=== PATIENT | female | born 1970 | race Caucasian/White ===

== ENCOUNTER 2017-01-12 11:58 | Inpatient (IN) | payer SELFPAY ==
[2017-01-12] MEDS ORDERED: ACETAMINOPHEN 325 MG TAB PO ONE (12:17)
[2017-01-12] MEDS ORDERED: predniSONE 20 MG TAB PO ONE (12:17)
[2017-01-12] MEDS ORDERED: SODIUM CHLORIDE 0.9% 250ML 250 ML ONE (13:05)
--- NOTE | 2017-01-12 13:08 | ED.PDOC ---
History of Present Illness - General Chief Complaint: General Stated Complaint: Low blood count Time Seen by Provider: 01/12/17 12:06 Source: patient, family Exam Limitations: no limitations - History of Present Illness Initial Comments: the patient is a 46-year-old female with a history of diabetes insipidusfrom a intracranial hemorrhage due to a ruptured intracranial aneurysm approximately a year ago. She did have blood transfusion as at that time. The patient is presenting due to progressive dizziness and weakness over the last month. She has also had significant dyspnea on exertion. No chest pain or palpitations. No syncope but questionable near syncope. She does have some memory problems from a stroke that she sustained around the time of her intracranial hemorrhage. This has not changed. She has had generalized weakness. Easy fatigue. She apparently has had some iron deficiency for at least a year if she has been on oral iron tablet that long. She is unsure why she has iron deficiency. She has apparently never had an EGD or colonoscopy and no history of any GI bleeds. She reports some menstrual irregularities over the last 2-3 months. But not extremely heavy flow. She has had a mild headache off and on particularly when she stands up. She went to her primary care clinic today and was found to look very pale. Outpatient labs were ordered showing a hemoglobin and hematocrit of 3 and 11. Timing/Duration: unsure Severity: moderate Improving Factors: immobilization Worsening Factors: movement Associated Symptoms: headaches, loss of appetite, malaise, shortness of breath, weakness Allergies/Adverse Reactions: Allergies Amoxicillin Allergy (Verified 01/12/17 13:00) Anaphylaxis Codeine Allergy (Verified 01/12/17 13:00) Vomitting Diphenhydramine [From Benadryl] Allergy (Verified 01/12/17 13:00) Rash Ethanol [From Robitussin] Allergy (Verified 06/13/15 13:49) Guaifenesin [From Robitussin] Allergy (Verified 06/13/15 13:49) Home Medications: Ambulatory Orders Ciprofloxacin [Cipro] 500 mg PO BID #20 tab 06/13/15 Gabapentin [Neurontin] 100 mg PO BEDTIME 06/13/15 LORazepam [Ativan] 1 mg PO Q4H PRN 06/13/15 Lisinopril [Prinivil] 10 mg PO DAILY 06/13/15 Metoprolol Succinate [Metoprolol Succinate ER] 25 mg PO BID 06/13/15 Multiple Vitamins W/ Minerals [Centrum Adults] 1 tab PO DAILY 06/13/15 Ondansetron [Zofran Odt] 4 mg PO QID PRN #10 tab 06/13/15 Review of Systems - Review of Systems Constitutional: States: malaise, weakness EENTM: States: no symptoms reported Respiratory: States: short of breath Cardiology: States: no symptoms reported Gastrointestinal/Abdominal: States: no symptoms reported Genitourinary: States: no symptoms reported Musculoskeletal: States: no symptoms reported Skin: States: no symptoms reported Neurological: States: headache, weakness - eneralized Endocrine: States: intolerance to cold All other Systems: No Change from Baseline Past Medical History (General) - Patient Medical History Hx Stroke: Yes - 2015 after aneurysm Hx Hypertension: Yes Hx Diabetes: No Hx MRSA: No - Vaccination History Hx Tetanus, Diphtheria Vaccination: - unknown Hx Influenza Vaccination: No Hx Pneumococcal Vaccination: No - Social History Hx Tobacco Use: Yes - Quit 03/2015 Family Medical History - Family History Mother Family History: Unknown Living Status: Still Living Physical Exam - Physical Exam General Appearance: Alert, No apparent distress, Other - she does appear pale and weak Eye Exam: bilateral normal - pale sclera Ears, Nose, Throat: normal ENT inspection, normal pharynx Neck: non-tender, full range of motion, supple Respiratory: chest non-tender, lungs clear, normal breath sounds, no respiratory distress, no accessory muscle use Cardiovascular/Chest: normal peripheral pulses, regular rate, rhythm, no edema Peripheral Pulses: radial,right: 2+, radial,left: 2+, dorsalis pedis,right: 2+, dorsalis pedis,left: 2+, posterior tibialis,right: 2+, posterior tibialis,left: 2+ Gastrointestinal/Abdominal: non tender, soft, no organomegaly Rectal Exam: deferred Back Exam: normal inspection, no CVA tenderness, no vertebral tenderness Extremity: normal range of motion, non-tender, normal inspection, no pedal edema , normal capillary refill Neurologic: alert, normal mood/affect, oriented x 3 - he does have poor memory and this is long-standing Skin Exam: pallor Comments: Vital Signs - 24 hr 01/12/17 12:32 Temperature 98.3 F Pulse Rate [ 106 H Right Radial] Respiratory 22 Rate Blood Pressure 95/62 [Left Arm] O2 Sat by Pulse 98 Oximetry Progress - Progress Progress: 01/12/17 13:10 the patient is a 46-year-old female presenting to the emergency room secondary to symptomatic anemia. Source of anemia is not entirely certain and is probably mixed in etiology. The patient will need a more extensive workup for the source. No evidence of active bleeding currently. The patient will be admitted for transfusion of packed red blood cells. She has received a dose of oral prednisone and Tylenol, given her Benadryl allergy. anticipate the need for 3-5 units. Monitor closely. She is very mildly hypotensive but we will avoid IV fluids for the moment in favor of the packed red blood cells. - Results/Orders Results/Orders: 01/12/17 12:20 PACKED CELLS,LR Stat TYPE AND SCREEN Stat Laboratory Results - last 24 hr 01/12/17 12:20 Patient ABO/Rh A POSITIVE Antibody Screen Negative Crossmatch See Detail hemoglobin and hematocrit are 3 and 11 respectively. The patient does appear significantly iron deficient. Departure - Departure Clinical Impression: Symptomatic anemia Disposition: Admit Patient Referrals: Sofía Valentine DISTRIBUTION DRIVER [Primary Care Provider] - 1-2 Weeks Home Medications: Ambulatory Orders Ciprofloxacin [Cipro] 500 mg PO BID #20 tab 06/13/15 Gabapentin [Neurontin] 100 mg PO BEDTIME 06/13/15 LORazepam [Ativan] 1 mg PO Q4H PRN 06/13/15 Lisinopril [Prinivil] 10 mg PO DAILY 06/13/15 Metoprolol Succinate [Metoprolol Succinate ER] 25 mg PO BID 06/13/15 Multiple Vitamins W/ Minerals [Centrum Adults] 1 tab PO DAILY 06/13/15 Ondansetron [Zofran Odt] 4 mg PO QID PRN #10 tab 06/13/15 Decision To Admit - Decistion To Admit Decision to Admit Reason: Medical Nature Decision to Admit Date: 01/12/17 Decision to Admit Time: 13:12
--- NOTE | 2017-01-12 14:43 | HP ---
SUPERVISING PHYSICIAN: Cody Ramirez M.D. CHIEF COMPLAINT: Weakness and low H&H. HISTORY OF PRESENT ILLNESS: This is a 46 year-old female patient who presented to [facility] today due to extreme weakness that started approximately 2 weeks ago that had been so bad that she has been in bed most of the time in the last 2 weeks. She lives with her sister. She has some short term memory issues due to an aneurysm she had almost 2 years ago. Her sister reports that about 2 months ago she had a viral infection and had some diarrhea , nausea and vomiting. She got over that and then about a month ago she just started feeling weaker. She does have a significant history of iron deficiency anemia but she also is very noncompliant going to doctor visits and does not do her followup. Today she was seen in clinic. Her hemoglobin and hematocrit were 3.4 and 11.4. She was sent to the Emergency Room. She was typed and crossed for blood in the Emergency Room and she actually had a transfusion that began . I was called for admission. PAST MEDICAL HISTORY: 1. Gastroesophageal reflux disease. 2. Hypertension. 3. Intracranial hemorrhage in March of 2015. 4. Stroke while in the hospital after her ICH. 5. Hyperlipidemia. PAST SURGICAL HISTORY: 1. Appendectomy. 2. sections times 2. 3. Craniotomy due to her intracranial hemorrhage in 2014. CURRENT MEDICATIONS: Per the EMR and awaiting verification. ALLERGIES: AMOXICILLIN, CODEINE, DIPHENHYDRAMINE, ETHANOL, GUAIFENESIN AND CAFFEINE FROM [facility]. SOCIAL HISTORY: She has been for many years. She has 2 children. She lives with her sister. She quit smoking approximately 2 years ago when she had her ICH. She does not drink alcohol or use illicit drugs. REVIEW OF SYSTEMS: Positive for fatigue. Never for fever or weight changes. HEENT: Positive for some sinus symptoms, but negative for ear pain, vision changes or sore throat. RESPIRATORY: Negative for coughing, wheezing, shortness of breath. CARDIAC: Negative for chest pain, palpitations or tachycardia. GASTROINTESTINAL: Negative for abdominal pain, nausea, vomiting or diarrhea. Positive for constipation due to taking iron. GENITOURINARY: Denies hematuria or dysuria. GYNECOLOGICAL: Positive for heavy irregular periods over the last 3 months. NEUROLOGIC: Positive for headaches over the last 2 months as well as positive for dizziness. Negative for seizures. PHYSICAL EXAMINATION: VITAL SIGNS: She is afebrile. Heart rate 94, blood pressure 113/69, respiratory rate 20, O2 sats are 98% on room air. GENERAL: This is a 46 year-old female patient who is lying in her hospital bed. She is in no acute distress. HEENT: Normocephalic and atraumatic. Pupils are equal and reactive. Oropharynx is clear. Oral mucous membranes are very pale. Conjunctiva are pale. NECK: Supple without mass. CHEST: Clear to auscultation bilaterally. There is equal rise and fall of the chest with inspiration and expiration. CARDIOVASCULAR: Regular rate and rhythm. ABDOMEN: Soft, nondistended, non-tender. Bowel sounds are positive. EXTREMITIES: No cyanosis, clubbing or edema. SKIN: Pale but warm and dry. NEUROLOGIC: She is awake, alert and oriented times three, although she does have a difficult time answering some health history questions mostly due to her short term memory loss from her intracranial hemorrhage 2 years ago. LABORATORY: Sodium 132, potassium 4.5, chloride 103, carbon dioxide 22, BUN 29 , creatinine 1.84, glucose 123, serum osmolality 271.7, calcium 7.7. Serum HCG is negative. Hemoglobin 3.4, hematocrit 11.4. WBCs 12.5, platelets 506. Iron is less than 6, TIBC is 386.4, iron saturation is 1.5, ferritin is 9.7. Urinalysis is pending. All other labs and films have been reviewed via the EMR. ASSESSMENT: 1. Severe iron deficiency anemia. 2. Acute renal failure. 3. Hypertension. 4. Gastroesophageal reflux disease. 5. Chronic nonsteroidal antiinflammatory use over the last 2 to 3 months. 6. Menorrhagia. 7. Headache. 8. Short term memory loss due to intracranial hemorrhage 2 years ago. PLAN: We will admit the patient to the hospital. She is presently in the process of receiving blood. We will give 4 total units tonight. I have ordered an abdominal and transvaginal sonogram for in the morning. I have also ordered a CT of the abdomen for in the morning. Planned to do it tonight but her creatinine is too high for contrast, so we will wait until in the morning. Repeat her lab in the morning. I plan on calling Dr. Smith tomorrow, who is a log feeder, as she may need an iron infusion tomorrow. She will need a gynecological referral as well as a GI referral. Maybe a combination of If she is going on with her irregular and heavy periods, and there may be some cause for some GI issues due to her excessive use of Excedrin over the last 2 months. Otherwise we will monitor her closely and followup as needed. Dr. Ramirez is the collaborating physician and available for consultation. #[id number] [facility]
[2017-01-12] MEDS ORDERED: SODIUM CHLORIDE 0.9% (FLUSH) 10 ML SYG IV PRN (15:52)
[2017-01-12] MEDS ORDERED: IV SET AND CAP CHANGE INJ INJ SCH (16:00)
[2017-01-12] MEDS ORDERED: FUROSEMIDE INJ 20 MG/2 ML VIAL IV ONE (16:11)
[2017-01-12] MEDS ORDERED: SODIUM CHLORIDE 0.9% 500ML 500 ML IVS SCH (16:30)
[2017-01-12] MEDS ORDERED: PANTOPRAZOLE SODIUM IV 40 MG VIAL IV SCH (18:00)
[2017-01-12] MEDS: GABAPENTIN 300 MG CAP PO SCH (20:05)
[2017-01-12] MEDS: CYCLOBENZAPRINE HCL 10 MG TAB PO PRN (20:10)
[2017-01-13] MEDS ORDERED: ACETAMINOPHEN 325 MG TAB PO PRN (04:03)
--- NOTE | 2017-01-13 07:11 | CT ---
Procedure: CT HEAD WITHOUT IV CONTRAST Exam Date: 01/13/2017 Ordering Provider: DEVAN SPENCER Clinical Indication: PACHECO; hx of ICH Comparison: None Technique: Using a helical scanner, sequential axial imaging of the brain was obtained without the administration of intravenous contrast. The exam was obtained from the skull base to vertex. This exam was performed according to our departmental dose optimization program which includes use of automated exposure control, adjustment of the mA and/or kV according to patient size and/or use of iterative reconstruction technique. Findings: Postsurgical changes at the level of the anterior cerebral artery on the left. There is encephalomalacia of the inferior medial left frontal lobe with ex vacuo dilatation of the anterior horn of the left lateral ventricle. Prominence of the third ventricles. There is linear hyperdensity within the inferior medial left frontal lobe which is felt to represent postsurgical change, less likely blood product. Otherwise, no acute intracranial hemorrhage. There is no midline shift or hydrocephalus. There is no acute infarct. Hypodensities in the periventricular and subcortical white matter of both cerebral hemispheres are nonspecific but likely related to chronic ischemic small vessel disease. Postsurgical changes of prior left frontal craniotomy. No acute calvarial fracture. There is no lytic or sclerotic lesion. The visualized paranasal sinuses and mastoid air cells are clear. IMPRESSION: 1.Postsurgical changes at the level of the anterior cerebral artery on the left. There is encephalomalacia of the inferior medial left frontal lobe with ex vacuo dilatation of the anterior horn of the left lateral ventricle. There is linear hyperdensity within the inferior medial left frontal lobe which is felt to represent postsurgical change, less likely blood product. Otherwise, no acute intracranial hemorrhage. Comparison with outside imaging if available is recommended. Electronically signed by: Carlos Carrion MD 01/13/2017 7:11 AM CDT
[2017-01-13] MEDS ORDERED: LORATADINE 10 MG TAB PO ONE (07:41)
[2017-01-13] MEDS ORDERED: LISINOPRIL 10 MG TAB ONE (07:42)
[2017-01-13] MEDS ORDERED: SIMVASTATIN 10 MG TAB PO ONE (07:42)
[2017-01-13] MEDS ORDERED: hydroCHLOROthiazide 12.5 MG CAP ONE (07:42)
[2017-01-13] MEDS ORDERED: NON-FORMULARY MEDICATION 1 EA MIS (Lovastatin [Lovastatin] 20 MG) PO SCH (09:00)
[2017-01-13] MEDS ORDERED: NON-FORMULARY MEDICATION 1 EA MIS (Lisinopril & Hydrochlorothiazi [Lisinopril/Hctz 10-12.5 PO SCH (09:00)
[2017-01-13] MEDS: hydroCHLOROthiazide 12.5 MG CAP PO SCH (09:30)
[2017-01-13] MEDS: LISINOPRIL 10 MG TAB PO SCH (09:30)
[2017-01-13] MEDS: SIMVASTATIN 10 MG TAB PO SCH (09:30)
[2017-01-13] MEDS: LORATADINE 10 MG TAB PO SCH (09:30)
--- NOTE | 2017-01-13 09:36 | CT ---
Study: CT abdomen and pelvis. Indication: anemia Technique: Venous phase CT imaging of the abdomen and pelvis obtained after intravenous administration of contrast. This exam was performed according to our departmental dose-optimization program, which includes automated exposure control, adjustment of the mA and/or kV according to patient size and/or use of iterative reconstruction technique. Comparison: None. Findings: Pleural-based mass right lower lobe measuring 2 cm with suspected central necrosis. Additional 5.5 mm, nodule right middle lobe. Heart unremarkable. Lateral aspect right hepatic lobe demonstrates a 2.9 cm hypodense mass. Gallbladder, pancreas, spleen, adrenal glands unremarkable. Moderate right renal atrophy. Lower uterine segment/cervix markedly enlarged and heterogeneous measuring up to 8.9 cm transverse by 7.2 cm AP by 6.9 cm craniocaudal. This is concerning for cervical cancer. There is fluid and air within the cervical canal. There is mass-effect on the distal left ureter with moderate left hydroureteronephrosis and slightly delayed left renal enhancement. 3 cm benign left ovarian follicular cyst. No additional follow-up required. Cervix has mass-effect on the rectum which is displaced posteriorly but nonobstructed. Appendix not visualized. Stomach and small bowel unremarkable. No free fluid. No free air. Atherosclerosis aorta without dilatation. Shotty reactive size retroperitoneal lymph nodes. Impression: Findings concerning for cervical cancer with enlarged cervix obstructing the distal left ureter with moderate left hydroureteronephrosis. 2.9 cm right hepatic lobe lesion, which could reflect a metastasis. 2 cm necrotic nodule base of the right lower lobe with additional 5.5 mm nodule right middle lobe. These could reflect metastases. Shotty subcentimeter retroperitoneal lymph nodes, nonspecific. Attention on follow-up recommended. Additional findings as above. Electronically signed by: Anup Truong MD 01/13/2017 9:35 AM CDT
--- NOTE | 2017-01-13 10:40 | US ---
Study: Abdominal ultrasound. Indication: anemia Comparison: CT abdomen, same day Technique: Multiplanar, multi sequence sonogram of the abdomen obtained. Findings: The hypoechoic 3 cm mass within the peripheral right hepatic lobe is only faintly visualized. No gallstones. Mild gallbladder wall thickening measuring 3.2 mm. No intrahepatic biliary ductal dilatation. The common bile duct measures 3 mm in diameter. The bilateral kidneys are appropriate in echogenicity without nephrolithiasis. Moderate right renal atrophy measures 6.1 cm in length. Left kidney measures 11.1 cm in length and demonstrates moderate left hydronephrosis. The visualized portions of the aorta and inferior vena cava are normal. The pancreas unremarkable. The spleen is normal. Impression: Subtle 3 cm mass peripheral hepatic lobe. Moderate right renal atrophy. Moderate left hydronephrosis. Mild gallbladder wall thickening, nonspecific. Electronically signed by: Anup Truong MD 01/13/2017 10:39 AM CDT
[2017-01-13] MEDS ORDERED: HYDROcodone 5MG/APAP 325MG 1 EA TAB PO ONE (15:19)
[2017-01-13] MEDS ORDERED: PANTOPRAZOLE SODIUM IV 40 MG VIAL IV SCH (21:00)
[2017-01-13] MEDS: CYCLOBENZAPRINE HCL 10 MG TAB PO PRN (21:06)
[2017-01-13] MEDS: GABAPENTIN 300 MG CAP PO SCH (21:06)
[2017-01-14] MEDS: LISINOPRIL 10 MG TAB PO SCH (08:41)
[2017-01-14] MEDS: SIMVASTATIN 10 MG TAB PO SCH (08:41)
[2017-01-14] MEDS: LORATADINE 10 MG TAB PO SCH (08:41)
[2017-01-14] MEDS: hydroCHLOROthiazide 12.5 MG CAP PO SCH (08:41)
--- NOTE | 2017-01-14 09:00 | PN ---
SUPERVISING PHYSICIAN: Cody Ramirez MD DATE: 01/13/17 SUBJECTIVE: I visited at length with the patient and her sister. A CAT scan of her abdomen and pelvis was performed today and the CT scan per radiologic interpretation shows findings concerning for cervical cancer and shows a hepatic lesion that could reflect metastasis as well as nodules on her right lower lobe and right middle lobe that could reflect metastasis as well as shotty subcentimeter retroperitoneal lymph nodes that are nonspecific. We reviewed her findings as well as her lab results. I discussed the case with Dr. Smith as well as also Dr. Ramirez and the patient has decided she wants to become a DNR and she does not want further treatment for this new finding. The sister has called the patient's daughters and they will be here in the next day or so. She does have some questions about receiving hospice care. I also discussed that with Dr. Ramirez and we will move forward with that as the patient requests. At this point, the patient feels much better after receiving her blood transfusion and she signed DNR papers. OBJECTIVE: VITAL SIGNS: Afebrile. Heart rate 61. Blood pressure 136/81. Respiratory rate 18. O2 saturation 97%. LUNGS: Clear to auscultation bilaterally. CARDIAC: Regular rate and rhythm. ABDOMEN: Mild diffuse tenderness. NEUROLOGIC: Awake, alert and oriented times three. LABORATORY: WBC 11.6, hemoglobin has improved to 8.7, hematocrit 26.3, platelet count 360. Sodium 132, BUN 30, creatinine 1.55. Head CT results per radiologic interpretation show postsurgical changes at the level of the anterior cerebral artery on the left. There is encephalomalacia at the inferomedial left frontal lobe with ex-vacuo dilatation of the anterior horn of the left lateral ventricle. There is linear hyperdensity within the inferomedial left frontal lobe which is felt to represent postsurgical change, less likely blood product. Ultrasound of the abdomen per radiologic interpretation shows subtle 3 cm mass, peripheral hepatic lobe, moderate right renal atrophy, moderate left hydronephrosis and mild gallbladder wall thickening that is nonspecific. Her abdominal and pelvic CT per radiologic interpretation shows findings concerning for cervical cancer with enlarged cervix obstructing the distal left ureter with moderate left hydroureteronephrosis, 2.9 cm right hepatic lobe lesion which could reflect a metastasis, 2 cm necrotic nodule, base of the right lower lobe with additional 5.5 mm nodule of the right middle lobe. These could reflect metastasis. Shotty subcentimeter retroperitoneal lymph nodes, nonspecific. Attention on followup recommended. All other labs and films have been reviewed via the EMR. ASSESSMENT: 1. Cervical cancer with metastasis to the liver and to the lung and questionable metastasis to the lymph nodes. 2. Severe iron deficiency anemia that has corrected after 4 units of packed red blood cells. 3. Acute renal failure, slightly improving. 4. Hypertension. 5. Gastroesophageal reflux disease. 6. Chronic nonsteroidal anti-inflammatory use over the last 2 to 3 months. 7. Menorrhagia. 8. Headache. 9. 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 PLAN: We will continue present supportive care. Marah Jordan, Optical Mechanic, is working on her discharge and options for the patient as far as hospice is concerned. The patient has declined having any further testing or treatment done. She has also declined any pathological studies. At this point, she would just like to be comfortable. Her daughters are coming from [place] and they will help decide how she should be discharged and what services she should receive. For now, we will try to keep the patient comfortable. She is a DNR. I have ordered some lab for tomorrow. We will watch her hemoglobin and hematocrit closely. Otherwise, we will continue present supportive care and followup as needed. #[id number] [facility]
[2017-01-14] MEDS: HYDROcodone 5MG/APAP 325MG 1 EA TAB PO PRN ×3 (10:23→22:37)
[2017-01-14] MEDS: MAGNESIUM HYDROXIDE 30 ML UD PO SCH ×2 (10:23→13:19)
--- NOTE | 2017-01-14 12:01 | PCM.CORE ---
Physician DVT/VTE - Nurse DVT Assessment & Total Each Risk Factor Represents 1 Point: Age 41-60 Each Risk Factor is 1 Point: Obesity (BMI >25) DVT Assessment Score: 2 - 2 Moderate Risk Treatments: Early Ambulation *, Sequential Compression Device
[2017-01-14] MEDS ORDERED: PANTOPRAZOLE SODIUM TAB 40 MG PO ONE (19:29)
[2017-01-14] MEDS ORDERED: PANTOPRAZOLE SODIUM TAB 40 MG PO SCH (21:00)
[2017-01-14] MEDS: GABAPENTIN 300 MG CAP PO SCH (21:13)
[2017-01-15] MEDS ORDERED: HYDROcodone 10MG/APAP 325MG 1 EA TAB PO PRN (01:00)
--- NOTE | 2017-01-15 08:17 | PN ---
SUPERVISING PHYSICIAN: Man Alex MD DATE: 01/14/17 SUBJECTIVE: The patient is sitting in her hospital bed. She has family at her bedside. She has no complaints of shortness of breath or chest pain. She does have complaints of right sided abdominal pain that extends to her right lower back. Her sister is also at the bedside and they are in the process of discussing where she wants to go after discharge. Her daughters have just come in from [facility] and they are discussing her options at this time. OBJECTIVE: VITAL SIGNS: Afebrile. Heart rate 89. Blood pressure 120/74. Respiratory rate 18. O2 saturation 95%. LUNGS: Clear to auscultation bilaterally. CARDIAC: Regular rate and rhythm. ABDOMEN: Soft, nondistended. Abdomen is diffuse tender and slightly more tender in the right upper quadrant. EXTREMITIES: No cyanosis, clubbing or edema. NEUROLOGIC: Awake, alert and oriented times three. LABORATORY: Hemoglobin and hematocrit have stabilized overnight at 8.7 and 6.3 with WBC 11.6. Sodium 132, carbon dioxide 20, BUN 30, creatinine 1.55. All other labs and films have been reviewed via the EMR. ASSESSMENT: 1. Cervical cancer with metastasis to the liver and to the lung and questionable metastasis to the lymph nodes. 2. Severe iron deficiency anemia that has corrected after 4 units of packed red blood cells. 3. Acute renal failure, slightly improved. 4. Hypertension. 5. Gastroesophageal reflux disease. 6. Chronic nonsteroidal anti-inflammatory use over the last 2 to 3 months. 7. Menorrhagia. 8. Headache. 9. 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 PLAN: We will continue present supportive care. Her daughters have just gotten into town from [facility] and they are discussing with the patient as well as her sister where she will be discharged. They are also discussing hospice care as the patient does not want any aggressive treatment at this time. There is a chance that she may be going to a skilled nursing tomorrow as her sister does not feel emotionally able to take care of her at home. I will have a meeting with them in the morning to discuss the options and if she wants hospice and which hospice service she would like to use. I will give her pain medication as well as antiemetics. We will try to keep her as comfortable as possible. She has requested a DNR, which is in place. We will plan for discharge tomorrow after the family meeting. Otherwise, we will continue to monitor the patient closely and followup as needed. Dr. Alex is the collaborating physician and available for consultation. #[id number] [facility]
[2017-01-15] MEDS: LISINOPRIL 10 MG TAB PO SCH (09:15)
[2017-01-15] MEDS: LORATADINE 10 MG TAB PO SCH (09:15)
[2017-01-15] MEDS: SIMVASTATIN 10 MG TAB PO SCH (09:15)
[2017-01-15] MEDS: hydroCHLOROthiazide 12.5 MG CAP PO SCH (09:15)
[2017-01-15 11:11] VITALS: TEMP 98.4
[2017-01-15] MEDS ORDERED: PROMETHAZINE HCL INJ 25 MG/ML VIAL IM ONE (11:34)
[2017-01-15] MEDS ORDERED: ONDANSETRON ODT 8 MG TAB SL PRN (11:38)
[2017-01-15 17:01] VITALS: BP 121/74
[2017-01-15 17:05] VITALS: O2SAT 97
--- NOTE | 2017-01-16 11:52 | DS ---
SUPERVISING PHYSICIAN: Man Alex M.D. DISCHARGE DIAGNOSIS: 1. Cervical cancer with metastasis to the liver and to the lung and questionable metastasis to the lymph nodes. 2. Severe iron deficiency anemia that has corrected after 4 units of packed red blood cells. 3. Acute renal failure, slightly improved. 4. Hypertension. 5. Gastroesophageal reflux disease. 6. Chronic nonsteroidal anti-inflammatory use over the last 2 to 3 months. 7. Menorrhagia. 8. Headache. 9. 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 HISTORY OF PRESENT ILLNESS: This is a 46 year-old female patient who presented to [facility] on the day of admission due to extreme weakness that had started approximately 2 weeks prior to her admission. She had been in bed for the previous 2 weeks and had gotten to the point that she was so weak that she decided to seek treatment. She lives with her sister. 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 Her sister reported that about 2 months ago she had a viral infection with some diarrhea, nausea and vomiting. She got over that and then about a month prior she started feeling weaker and weaker. She has a significant history of iron deficiency anemia, but she has been very lax in going to her medical appointments and has had very little medical treatment over most of her life. An H&H was obtained while she was in clinic and her hemoglobin and hematocrit were 3.4 and 11.4. She was sent to the Emergency Room. HOSPITAL COURSE: She was admitted to the hospital and given 4 units of packed red blood cells overnight. It was very difficult to obtain a history from her as she was not forthcoming with information, but it was eventually discovered that over the last 3 to 4 months she had been having very heavy irregular periods as well as she had had a headache in which she had been taking large doses of NSAIDs. A CT of the head was done and per radiologic interpretation showed postsurgical changes at the level of anterior cerebral artery on the left. There is encephalomalacia of the inferior medial left frontal lobe with ex vacuo dilatation of the anterior horn of the left lateral ventricle. There is linear hyperdensity within the inferior medial left frontal lobe which is felt to represent postsurgical changes and less likely blood product. A CT of the abdomen was done which showed findings that were concerning for cervical cancer with an enlarged cervix obstructing the distal left ureter with moderate left hydroureter nephrosis, a 2.9 cm right hepatic lobe lesion which could reflect a metastasis, a 2 cm necrotic nodule base of the right lower lobe with additional 5 mm nodules in the right middle lobe that could reflect metastasis and shoddy subcentimeter retroperitoneal lymph nodes that were nonspecific. An abdominal ultrasound was obtained that showed a subtle 3 cm mass peripheral hepatic lobe, moderate right renal atrophy, moderate left hydronephrosis and mild gallbladder wall thickening that was nonspecific. She refused her transvaginal sonogram. Hemoglobin and hematocrit did improve to 8.6 and 25.3 but given the findings of her CT and the possibility of cervical cancer, the patient elected not to have any further testing or treatment done. Her H&H was monitored overnight to make sure that she did not have any acute blood loss. The next day her hemoglobin and hematocrit were 8.7 and 26.3. Her 2 daughters came in from out of town, one from [place] and one from [place], and as a group they decided that the patient would go home to her sisters and she would be discharged with [facility]. [facility] came to the hospital and admitted the patient and she will be discharged home today. DISCHARGE PLAN: The patient will be discharged home in fair condition to the services of [facility]. I have continued her antihypertensive but I will leave all further medications up to the hospice care. I have also suggested that she consider going to a assisted at some point if her sister is unable to take care of her, and all followup should be through [facility]. Dr. Alex is the collaborating physician and available for consultation. #[id number] [facility]
== END 2017-01-15 16:45 | disposition hospice, home (50) | DRG 755 ==
LOC: ER 11:58 → OBSVTOIN 14:42 → MS 14:42
PROVIDERS: ADMIT Nurse Practitioner Acute Care; ATTEND Nurse Practitioner Acute Care
PROC: 30233N1 Transfusion of Nonautologous Red Blood Cells into Peripheral Vein, Percutaneous Approach (ICD-10-PCS; principal; 2017-01-12)
PROC: BW21YZZ Computerized Tomography (CT Scan) of Abdomen and Pelvis using Other Contrast (ICD-10-PCS; 2017-01-13)
DX: C53.9 Malignant neoplasm of cervix uteri, unspecified (principal); C78.7 Secondary malignant neoplasm of liver and intrahepatic bile duct; C78.01 Secondary malignant neoplasm of right lung; N13.1 Hydronephrosis with ureteral stricture, not elsewhere classified; N17.9 Acute kidney failure, unspecified; D50.9 Iron deficiency anemia, unspecified; I10 Essential (primary) hypertension; K21.9 Gastro-esophageal reflux disease without esophagitis; R41.3 Other amnesia; E78.5 Hyperlipidemia, unspecified; Z79.1 Long term (current) use of non-steroidal anti-inflammatories (NSAID); Z86.73 Personal history of transient ischemic attack (TIA), and cerebral infarction without residual deficits; Z88.0 Allergy status to penicillin; Z88.5 Allergy status to narcotic agent; Z88.8 Allergy status to other drugs, medicaments and biological substances; Z87.891 Personal history of nicotine dependence; Z66 Do not resuscitate; Z79.899 Other long term (current) drug therapy

== ENCOUNTER → 2017-01-12 | Outpatient (CLI) | payer SELFPAY | END | disposition home or self-care (01) | LOC: YCFC.O 10:56 | PROVIDERS: ATTEND Nurse Practitioner Family | DX: D50.9 Iron deficiency anemia, unspecified (principal); R53.83 Other fatigue ==